=== PATIENT | female | born 1990 | race Caucasian/White ===

== ENCOUNTER → 2020-08-06 | Outpatient (CLI) | payer OTHER ==
--- NOTE | 2020-08-06 11:06 | RAD ---
EXAMINATION: HIP RIGHT 2V WITH PELVIS CLINICAL HISTORY: Right hip pain TECHNIQUE: HIP RIGHT 2V WITH PELVIS Number of Images/Views: 3 COMPARISON: None FINDINGS: Joint spaces and alignment maintained in the right hip. Limited evaluation of the left hip unremarkable. Pubic symphysis and SI joints maintained. No acute fracture. IUD in place. IMPRESSION: No acute osseous abnormality. Electronically signed by: Saw Juan DO (08/06/2020 11:03 AM) [id number]
== END | disposition home or self-care (01) ==
LOC: DXRAD 10:15
PROVIDERS: ATTEND Physician Assistant
DX: M25.551 Pain in right hip (principal)
CPT/HCPCS: 73502